=== PATIENT | male | born 1950 | race Caucasian/White ===

== ENCOUNTER 2018-09-15 11:32 | Outpatient (CLI) | payer MEDICARE ==
--- NOTE | 2018-09-15 12:16 | RAD ---
2 VIEW CHEST: Date: 09/15/18 INDICATION: Evaluate for tuberculosis, psoriasis vulgaris. FINDINGS: The lungs are clear. No effusion or pneumothorax. Cardiac silhouette is normal in size. IMPRESSION: No focal consolidation. POS: [id number]
== END 2018-09-15 11:33 | disposition home or self-care (01) ==
LOC: BICRAD 11:32
PROVIDERS: ATTEND Dermatology
DX: L40.0 Psoriasis vulgaris (principal)
CPT/HCPCS: 71046